=== PATIENT | male | born 1995 | race African-American/Black ===

== ENCOUNTER 2021-12-14 00:38 | Emergency (ER) | payer MEDICAID ==
[~2021-12-14] VITALS: Ht 172.7 cm; Wt 113.4 kg
[2021-12-14 02:00] VITALS: BP 140/80
[2021-12-14] MEDS ORDERED: HYDROcodone-ACET 5/325MG TAB PO ONE (02:00)
== END 2021-12-14 02:53 | disposition home or self-care (01) ==
LOC: ER 00:38
DX: S21.139A Puncture wound without foreign body of unspecified front wall of thorax without penetration into thoracic cavity, initial encounter (principal); J45.909 Unspecified asthma, uncomplicated; E78.5 Hyperlipidemia, unspecified; F17.210 Nicotine dependence, cigarettes, uncomplicated; X58.XXXA Exposure to other specified factors, initial encounter; Y93.89 Activity, other specified; Y92.89 Other specified places as the place of occurrence of the external cause; Y99.8 Other external cause status
CPT/HCPCS: 71045; 93005

== ENCOUNTER 2024-12-23 19:46 | Emergency (ER) | payer MEDICAID ==
[~2024-12-23] VITALS: Ht 175.3 cm; Wt 104.5 kg
--- NOTE | 2024-12-23 21:23 | DVH ---
CLINICAL INDICATION: fall TECHNIQUE: XY R SHOULDER 2+ VIEW XRAY Comparison: None FINDINGS/IMPRESSION: : Mildly displaced fracture in the right humeral neck with some surrounding callus formation suggesting a component of healing response. Overlying soft tissues are intact. The visualized right lung is clear.
[2024-12-23] MEDS ORDERED: HYDR-4902 PO (22:19)
--- NOTE | 2024-12-23 22:21 | ED.PDOC ---
Musculoskeletal HPI Comments 29-year-old male brought in by EMS. Patient complaining of right shoulder pain. States he fell onto his right shoulder. Patient was reports a history of shoulder dislocation. Last time it was dislocated was one year ago. Denies hitting his head. Chief Complaint: Upper Extremity Time Seen by MD: 19:48 Reviewed Notes: Nurses Notes Allergies: Coded Allergies: NO KNOWN ALLERGIES (Unverified , 11/28/21) Information Source: Patient Mode of Arrival: EMS Location: Right Extremity Location: Shoulder Past Medical History PAST MEDICAL HISTORY: Asthma, High Lipids Family History Family History: Unknown Social History Smoker: Cigarettes Alcohol: Occasionally Constitutional: denies: chills, diaphoresis, fatigue, fever, malaise, sweats, weakness, others EENTM: denies: blurred vision, double vision, ear bleeding, ear discharge, ear drainage, ear pain, ear ringing, eye pain, eye redness, hearing loss, mouth pain, mouth swelling, nasal discharge, nose bleeding, nose congestion, nose pain, photophobia, tearing, throat pain, throat swelling, voice changes, others Respiratory: denies: cough, hemoptysis, orthopnea, SOB at rest, shortness of breath, SOB with excertion, stridor, wheezing, others Cardiovascular: denies: chest pain, dizzy spells, diaphoresis, Dyspnea on exertion, edema, irregular heart beat, left arm pain, lightheadedness, palpitations, PND, syncope, others Gastrointestinal: denies: abdomen distended, abdominal pain, blood streaked bowels, constipated, diarrhea, dysphagia, difficulty swallowing, hematemesis, melena, nausea, poor appetite, poor fluid intake, rectal bleeding, rectal pain, vomiting, others Genitourinary: denies: burning, dysuria, flank pain, frequency, hematuria, incontinence, penile discharge, penile sore, pain, testicle pain, testicle swelling, urgency, others Neurological: denies: dizziness, fainting, headache, left sided numbness, left sided weakness, numbness, paresthesia, pre-existing deficit, right sided numbness, right sided weakness, seizure, speech problems, tingling, tremors, weakness, others Musculoskeletal: reports: joint pain, muscle pain, muscle stiffness; denies: back pain, gout, joint swelling, neck pain, others Allergic/Immunocompromised: denies: Difficulty Healing, Frequent Infections, Hives, Itching, others Physical Exam General Appearance: No Apparent Distress, Normal HEENT: Normal ENT Inspection, Pharynx Normal, TMs Normal Neck: Full Range of Motion, Non-Tender, Normal, Normal Inspection Respiratory: Chest Non-Tender, Lungs Clear, No Accessory Muscle Use, No Respiratory Distress, Normal Breath Sounds Cardiovascular: No Edema, No JVD, No Murmur, No Gallop, Normal Peripheral Pulses, Regular Rate/Rhythm Breast Exam: Deferred Gastrointestinal: No Organomegaly, Non Tender, No Pulsatile Mass, Normal Bowel Sounds, Soft Genitalia: Deferred Pelvic: Deferred Rectal: Deferred Extremities: No calf tenderness, Normal capillary refill, Normal inspection, Normal range of motion, Non-tender, No pedal edema Musculoskeletal : Location: Right Extremity Location: Shoulder (Right shoulder tender to palpation) Apperance: Normal Neurologic: Alert, pipe cutter II-XII nml as Tested, No Motor Deficits, Normal Affect, Normal Mood, No Sensory Deficits Cerebellar Function: Normal Reflexes: Normal Skin: Dry, Normal Color, Warm Lymphatic: No Adenopathy Was a procedure done? Was a procedure done?: No Differential Diagnosis EXT Differential Diagnosis: Fracture, Sprain, Dislocation X-Ray, Labs, Meds, VS Vital Signs Date Time Temp Pulse Resp B/P (MAP) Pulse Ox O2 Delivery O2 Flow Rate FiO2 12/23/24 19:56 98.0 88 24 159/88 (111) 95 X-Ray, Labs, Meds, VS Comment X-ray shows fracture of the humeral head Patient placed in a sling Spoke with Dr. Allen loss prevention specialist, he states patient can be sent home in his sling and seen in outpatient Time of 1ST Reevaluation: 22:20 Reevaluation 1ST: Improved Patient Education/Counseling: Diagnosis, Treatment, Need For Follow Up (Follow up with loss prevention specialist tomorrow) Family Education/Counseling: Diagnosis Departure 1 Departure Time of Disposition: 22:18 Impression: Primary Impression: Humeral head fracture Qualified Codes: S42.291A - Other displaced fracture of upper end of right humerus, initial encounter for closed fracture Disposition: HOME / SELF CARE / HOMELESS Condition: Fair Referrals: BRANT ACHARYA [facility] Additional Instructions: Follow up with the loss prevention specialist tomorrow e-Prescriptions Hydrocodone-Acetaminophen (Hydrocodone Bitartrate/AC 5-325 mg) 1 Tab Tab 1 TAB PO TID PRN, #24 TAB Prov: ADELINA QUEZADA 12/23/24 Discharged With: Self Critical Care Note Critical Care Time?: No Stability Stability form required: No Heart Score Heart Score: Heart Score Response (Comments) Value History N/A 0 EKG N/A 0 Age N/A 0 Risk Factors N/A 0 Troponin N/A 0 Total 0 ADELINA QUEZADA Dec 23, 2024 22:21
[2024-12-23] MEDS: OXYCODONE W/ ACETAMINOPHEN 5/325MG TABLET PO ONE (22:41)
[2024-12-23 22:50] VITALS: BP 139/89; TEMP 98
[2024-12-23 23:00] VITALS: PULSE 86; RESP 18; O2SAT 96
== END 2024-12-23 23:09 | disposition home or self-care (01) ==
LOC: EDBD 19:46 → ER 19:48
DX: S42.391A Other fracture of shaft of right humerus, initial encounter for closed fracture (principal); F17.210 Nicotine dependence, cigarettes, uncomplicated; J45.909 Unspecified asthma, uncomplicated; E78.5 Hyperlipidemia, unspecified; W18.39XA Other fall on same level, initial encounter; Y93.89 Activity, other specified; Y92.89 Other specified places as the place of occurrence of the external cause; Y99.8 Other external cause status
CPT/HCPCS: 73030

== ENCOUNTER 2025-08-06 13:16 | Emergency (ER) | payer MEDICAID ==
[~2025-08-06] VITALS: Ht 175.3 cm; Wt 94.2 kg
[~2025-08-06 13:16] MED LIST: HYDR-4902 PO
--- NOTE | 2025-08-06 13:51 | ED.PDOC ---
Psychiatric HPI Comments 30-year-old male who presents to the ED c/c of mental health Patient presents with a partner who states that approximately 11:30 p.m. last night, patient smoked meth Patient significant other since state the patient has been having auditory and visual hallucinations Patient partner states patient opened his garage and states that he someone looking at him Patient otherwise states that he his daily EtOH drinker and he had 2 drinks last night but states he drinks 9 beers daily otherwise Patient in the ED states he did have suicidal thoughts 3 days ago but denies any associated plan Patient now in the ED denies any suicidal or homicidal thoughts Patient in the ED otherwise denies any past diagnosed psychiatric mental health history patient was ED has audible pressure 161/98 and heart rate 122 with otherwise stable vitals including temperature 97.0? F respiratory rate 18 and O2 saturation of 95% on room air Patient otherwise denies any other symptoms at this time. PMHx: Asthma, alcohol abuse, methamphetamine abuse, marijuana abuse Past surgical history: Hand and jaw surgery Medications: Denies Allergies: Denies Social history: Endorses heavy ETOH use, endorses marijuana and methamphetamine use HPI: Poor Historian. REVIEW OF SYSTEMS: CONSTITUTIONAL: Denies acute: fever, diaphoresis, chills, HEAD: Denies acute: headache, photophobia Eyes: Denies acute: Double vision, vision loss, eye pain, eye discharge. EARS: Denies acute: tinnitus, hearing loss, ear discharge, ear pain, THROAT: Denies acute: sore throat, swelling, difficulty swallowing , pain with swallowing, change in voice. NECK: Denies acute: neck pain, neck swelling, stiff neck. HEART: Denies acute : chest pain, palpitations, LUNGS: Denies acute: SOB, wheezing, cough, hemoptysis ABDOMEN: Denies acute: abdominal pain, Nausea, Vomiting, diarrhea, melena , hematemesis, hematochezia SKIN: Denies acute: rash, redness, lesions, itchiness. EXTREMITIES: Denies acute: calf pain, numbness, tingling, weakness, denies pain in extremity. Denies acute: Low back pain. Neuro: Denies acute: focal neurological deficit, motor or sensory focal neurological deficit, tremors, seizure like activity, confusion, dizziness, change in mental status, loss of bowel or bladder function, cauda equina like symptoms. : Denies acute: dysuria, hematuria, flank pain, increase in urinary frequency. PSYCH: Denies acute: homicidal ideation. PHYSICAL EXAM: General: ---mild-----acute distress, awake and alert. Head: normocephalic, atraumatic. Neck: supple, trachea is midline, no swelling. Throat: Normal phonation. Eyes:, no erythema, no purulent discharge, no proptosis, no icterus. Heart: regular tachycardia,, no significant murmur appreciated. Lungs: no apparent respiratory distress, Able to speak in full sentences. No wheezing, no rhonchi, no crackles. No stridors Clear to auscultation bilaterally. Abdomen: non tender to palpation, non distended, soft, no guarding, no rebound, + bowel sounds. Neuro: Awake, Alert, oriented to name, self, situation, follows commands GCS=15. Speech is normal. Skin: no petechia, no purpura, no cyanosis, non-pale, not jaundice. Lower extremities: --no - Pitting edema no deformity, no focal swelling, no calf TTP. Makes eye contact. moves all four extremities. Face: no apparent facial droop. Ambulating in the ED independently. ED COURSE: DISCLAIMER: This medical document was created using an electronic medical record system with voice recognition software and computerized dictation system. Although this document has been carefully reviewed, there might still be some phonetic and typographical errors. Occasional wrong-word or "sound-alike" substitutions may have occurred due to the inherent limitations of voice recognition software. These areas are purely typographical due to imperfections of the software programs and do not reflect any compromise in the patient's medical care. Please read the chart carefully and recognize, using context, where these substitutions have occurred. Chief Complaint: Mental Health Time Seen by MD: 13:46 Reviewed Notes: Medications, Allergies Information Source: Patient, Significant Other Mode of Arrival: Ambulatory Past Medical History PAST MEDICAL HISTORY: Asthma, High Lipids Family History Family History: Unknown Social History Smoker: Cigarettes Alcohol: Occasionally Drugs: Methamphetamine Was a procedure done? Was a procedure done?: No Psych Differential Dx Psych. Differential Dx: Anxiety, Bipolar Disorder, Depression, Hopeless, Panic Disorder, Schizoprenia, Suicidal OD Differential Dx: Conversion Disorder, Delirium, Personality Disorder, Suicidal Gesture Intoxication Differential Dx: Alcohol Withdraw Syndrome, Hallucinations, Dehydration, Drug-Induced Psychosis X-Ray, Labs, Meds, VS Vital Signs Date Time Temp Pulse Resp B/P (MAP) Pulse Ox O2 Delivery O2 Flow Rate FiO2 08/06/25 19:46 97 18 99 Room Air* 0 21 08/06/25 19:45 98.9 97 18 152/97 (115) 99 98.9 08/06/25 13:17 97.0 122 18 161/98 95 97.0 Lab Test 08/06/25 13:32 08/06/25 13:20 Range/Units White Blood Count 10.8 4.4-10.8 10^3/uL Red Blood Count 4.81 4.5-5.90 10^6/uL Hemoglobin 15.1 13.5-17.5 g/dL Hematocrit 43.3 41.0-53.0 % Mean Corpuscular Volume 90.0 80.0-100.0 fL Mean Corpuscular Hemoglobin 31.4 28.0-32.0 pg Mean Corpuscular Hemoglobin Concent 34.9 32.0-36.0 g/dL Red Cell Distribution Width 13.1 11.8-14.3 % Platelet Count 199 140-450 10^3/uL Mean Platelet Volume 9.3 6.9-10.8 fL Neutrophils (%) (Auto) 76.0 37.0-80.0 % Lymphocytes (%) (Auto) 15.5 10.0-50.0 % Monocytes (%) (Auto) 7.9 0.0-12.0 % Eosinophils (%) (Auto) 0.2 0.0-7.0 % Basophils (%) (Auto) 0.4 0.0-2.0 % Neutrophils # (Auto) 8.2 1.6-8.6 10 ^3/uL Lymphocytes # (Auto) 1.7 0.4-5.4 10 ^3/uL Monocytes # (Auto) 0.9 0-1.3 10 ^3/uL Eosinophils # (Auto) 0 0-0.8 10 ^3/uL Basophils # (Auto) 0 0-0.2 10 ^3/uL Nucleated Red Blood Cells 0.0 % Sodium Level 132 L 136-145 mmol/L Potassium Level 3.5 3.5-5.1 mmol/L Chloride Level 98 98-107 mmol/L Carbon Dioxide Level 23 20-31 mmol/L Anion Gap 11 5-15 Blood Urea Nitrogen 8 L 9-23 mg/dL Creatinine 0.67 L 0.700-1.30 mg/dL Glomerular Filtration Rate Calc 128 >90 mL/min BUN/Creatinine Ratio 11.9 10.0-20.0 Serum Glucose 79 74-106 mg/dL Calcium Level 9.8 8.7-10.4 mg/dL Total Bilirubin 1.4 H 0.2-1.0 mg/dL Aspartate Amino Transferase (AST) 96 H 13-40 U/L Alanine Aminotransferase (ALT) 105 H 7-40 U/L Alkaline Phosphatase 98 46-116 U/L Total Protein 8.7 H 5.7-8.2 g/dL Albumin 5.0 H 3.2-4.8 g/dL Plasma/Serum Blood Alcohol < 3.0 <10 mg/dL Urine Opiates Screen Neg NEGATIVE Urine Fentanyl Screen Neg NEGATIVE Urine Barbiturates Screen Neg NEGATIVE Urine Phencyclidine Screen Neg NEGATIVE Urine Amphetamines Screen Pos NEGATIVE Urine Benzodiazepines Screen Neg NEGATIVE Urine Cocaine Screen Neg NEGATIVE Urine Cannabinoids Screen Pos NEGATIVE Current Medications Medications (Trade) Dose Ordered Sig/Vijay Route Start Time Stop Time Status Last Admin Sodium Chloride 1,000 ml @ 1,000 mls/hr Q1H ONCE IV 08/06/25 14:00 08/06/25 14:59 DC 08/06/25 18:26 Olanzapine (ZyPREXA Tablet) 10 mg ONCE ONCE PO 08/06/25 19:30 08/06/25 19:31 DC 08/06/25 19:47 Lorazepam (Ativan Tablet) 2 mg ONCE ONCE PO 08/06/25 19:30 08/06/25 19:31 DC 08/06/25 19:47 Time of 1ST Reevaluation: 00:00 Reevaluation 1ST: N/A Patient Education/Counseling: Diagnosis, Treatment Family Education/Counseling: Diagnosis, Treatment Assigned to Dr. Dr. Pinedo. Comments telepsych: He does not appear safe to discharge home at this time Recommend Zyprexa 10mg po x1 now, Ativan 2mg po x1 now and re-evaluate Am The care of this patient was signed out to carmen Pinedo. Patient has been medically cleared. Patient is awaiting repeat tele psych evaluation. Departure 1 Departure Time of Disposition: 14:50 Impression: Primary Impression: Methamphetamine abuse Additional Impressions: Alcohol abuse Hallucination Suicidal ideation Encounter for psychiatric assessment Disposition: 30 STILL A PATIENT Condition: Guarded Discharged With: Self Critical Care Note Critical Care Time?: No I personally scribed for ROBERT JAQUEZ DO ([email or web address]) on 08/06/25 at 13:51. Electronically submitted by Juan Carlos Dwyer ([facility]). ROBERT JAQUEZ DO Aug 06, 2025 13:51
[2025-08-06 13:53] LABS: Hematocrit 43.3 % (41.0-53.0); Hemoglobin 15.1 g/dL (13.5-17.5); Mean Corpuscular Hemoglobin 31.4 pg (28.0-32.0); Mean Corpuscular Volume 90.0 fL (80.0-100.0); Nucleated Red Blood Cells % 0.0 %
[2025-08-06 14:02] LABS: Alkaline Phosphatase 98 U/L (46-116); Anion Gap 11 (5-15); BUN/Creatinine Ratio 11.9 (10.0-20.0); Calcium 9.8 mg/dL (8.7-10.4); Carbon Dioxide 23 mmol/L (20-31); Glucose 79 mg/dL (74-106); Potassium 3.5 mmol/L (3.5-5.1)
[2025-08-06 14:07] LABS: Alanine Aminotransferase 105 U/L (7-40); Albumin 5.0 g/dL (3.2-4.8); Bilirubin, Total 1.4 mg/dL (0.2-1.0); Blood Urea Nitrogen 8 mg/dL (9-23); Chloride 98 mmol/L (98-107); Sodium 132 mmol/L (136-145); Total Protein 8.7 g/dL (5.7-8.2)
[2025-08-06 14:23] LABS: Cannabinoid Screen, Urine Pos (NEGATIVE)
[2025-08-06 14:30] LABS: Amphetamine Screen, Urine Pos (NEGATIVE); Barbiturate Scree,Urine Neg (NEGATIVE); Opiate Scree,Urine Neg (NEGATIVE); Phencyclidine Screen, Urine Neg (NEGATIVE)
[2025-08-06 14:31] LABS: Benzodiazephine Screen, Urine Neg (NEGATIVE); Cocaine Screen, Urine Neg (NEGATIVE)
[2025-08-06] MEDS: SODIUM CHLORIDE 0.9% 1,000 ML IV ONE (18:26)
--- NOTE | 2025-08-06 18:46 | DVHINCON2 ---
Date of Service if different f: Aug 06, 2025 Consultation (RENT[facility]) Labs Laboratory Tests Test 08/06/25 13:20 08/06/25 13:32 Urine Opiates Screen Neg (NEGATIVE) Urine Fentanyl Screen Neg (NEGATIVE) Urine Barbiturates Screen Neg (NEGATIVE) Urine Phencyclidine Screen Neg (NEGATIVE) Urine Amphetamines Screen Pos (NEGATIVE) Urine Benzodiazepines Screen Neg (NEGATIVE) Urine Cocaine Screen Neg (NEGATIVE) Urine Cannabinoids Screen Pos (NEGATIVE) White Blood Count 10.8 10^3/uL (4.4-10.8) Red Blood Count 4.81 10^6/uL (4.5-5.90) Hemoglobin 15.1 g/dL (13.5-17.5) Hematocrit 43.3 % (41.0-53.0) Mean Corpuscular Volume 90.0 fL (80.0-100.0) Mean Corpuscular Hemoglobin 31.4 pg (28.0-32.0) Mean Corpuscular Hemoglobin Concent 34.9 g/dL (32.0-36.0) Red Cell Distribution Width 13.1 % (11.8-14.3) Platelet Count 199 10^3/uL (140-450) Mean Platelet Volume 9.3 fL (6.9-10.8) Neutrophils (%) (Auto) 76.0 % (37.0-80.0) Lymphocytes (%) (Auto) 15.5 % (10.0-50.0) Monocytes (%) (Auto) 7.9 % (0.0-12.0) Eosinophils (%) (Auto) 0.2 % (0.0-7.0) Basophils (%) (Auto) 0.4 % (0.0-2.0) Neutrophils # (Auto) 8.2 10 ^3/uL (1.6-8.6) Lymphocytes # (Auto) 1.7 10 ^3/uL (0.4-5.4) Monocytes # (Auto) 0.9 10 ^3/uL (0-1.3) Eosinophils # (Auto) 0 10 ^3/uL (0-0.8) Basophils # (Auto) 0 10 ^3/uL (0-0.2) Nucleated Red Blood Cells 0.0 % Sodium Level 132 mmol/L (136-145) Potassium Level 3.5 mmol/L (3.5-5.1) Chloride Level 98 mmol/L (98-107) Carbon Dioxide Level 23 mmol/L (20-31) Anion Gap 11 (5-15) Blood Urea Nitrogen 8 mg/dL (9-23) Creatinine 0.67 mg/dL (0.700-1.30) Glomerular Filtration Rate Calc 128 mL/min (>90) BUN/Creatinine Ratio 11.9 (10.0-20.0) Serum Glucose 79 mg/dL (74-106) Calcium Level 9.8 mg/dL (8.7-10.4) Total Bilirubin 1.4 mg/dL (0.2-1.0) Aspartate Amino Transf (AST/SGOT) 96 U/L (13-40) Alanine Aminotransferase (ALT/SGPT) 105 U/L (7-40) Alkaline Phosphatase 98 U/L (46-116) Total Protein 8.7 g/dL (5.7-8.2) Albumin 5.0 g/dL (3.2-4.8) Plasma/Serum Blood Alcohol < 3.0 mg/dL (<10) Appetite: Poor Appearance: Stated age, Disheveled Psychomotor activity: Restless Behavioral: [place] Eye contact: Limited Speech: Slowed Affect: Mood Congruent Thought content: Paranoid, Hallucinations (auditory) Suicidal ideations: Absent Homicidal ideations: Absent Orientation: Person, Place, Time, Situation Memory intact: Recent Intellect: Average Abstractability: Marginal Concentration: Limited Attention: Limited Judgement: Poor Insight: Fair Vitals Vital Signs Date Time Temp Pulse Resp B/P (MAP) Pulse Ox O2 Delivery O2 Flow Rate FiO2 08/06/25 13:17 97.0 122 18 161/98 95 97.0 Treatment plan discussed: Family Medication adjusted: Yes Labs ordered: No Diagnosis: unspecified psychosis Methamphetamine intoxication Plan : Patient is very preoccupied, reporting auditory, visual hallucinations and paranoia of family members being outside the room, waiting to harm him He does not appear safe to discharge home at this time Recommend Zyprexa 10mg po x1 now, Ativan 2mg po x1 now and re-evaluate Am History of Present Illness Reason for Consult : patient is here for psychosis with methamphetamine use HPI : This is a 30-year-old male presented here with his reporting hallucinations after methamphetamine use. Patient is evaluated via telepsychiatry platform. He reports use of methamphetamine for the past 6 months and had new onset of hallucinations after use last night. He is very distracted on exam, thought delays, trouble focusing due to hallucinations. He reports hearing people talk that they want to harm him. He presently reports hearing people outside the door. is at bedside, she reports hallucinations have persisted for the past 15 hours, he has not sleep. He has delusions that his family is behind it all. He is frequently room sca nning and attempting to get up during interview to check the door. They both deny hallucinations in the past. Patient also reports he has been depressed over one year. He has trouble sleeping, depressed mood, and lost about 60 pounds. He reports sometimes suicidal thoughts but denies any intent or plan now. He denies homicidal ideation. Past Psychiatric History : He denies past formal diagnosis, psych admissions or holds. He reports past suicide attempt of OD on pills 1-2 years ago and denies hospitalizations after OD. He denies past or current use of psychotropic medications. He denies any current mental health outpatient linkage. Past Medical History : he reports hx of asthma Social History : He lives with , not employed. He denies any known family history of psychiatric problems. He reports use of marijuana and methamphetamine a few time per week. He denies other substances or IVD use. MALINI MAYER [facility] Aug 06, 2025 18:46
[2025-08-06 19:45] VITALS: BP 152/97; TEMP 98.9
[2025-08-06 19:46] VITALS: PULSE 97; RESP 18; O2SAT 99
[2025-08-06] MEDS: LORazepam 0.5 MG TAB PO ONE (19:47)
[2025-08-06] MEDS: OLANZapine 5 MG TAB PO ONE (19:47)
== END 2025-08-06 21:02 | disposition left against medical advice (07) ==
LOC: ER 13:16
DX: F15.129 Other stimulant abuse with intoxication, unspecified (principal); F10.10 Alcohol abuse, uncomplicated; R44.1 Visual hallucinations; R44.0 Auditory hallucinations; R45.851 Suicidal ideations; F17.210 Nicotine dependence, cigarettes, uncomplicated; F12.90 Cannabis use, unspecified, uncomplicated; J45.909 Unspecified asthma, uncomplicated; E78.5 Hyperlipidemia, unspecified; F32.A Depression, unspecified; Z00.8 Encounter for other general examination; Z91.51 Personal history of suicidal behavior
CPT/HCPCS: 36415; 80053; 80307; 80320; 85025; 96360; 99284; J7030